=== PATIENT | female | born 1985 | race Caucasian/White ===

== ENCOUNTER → 2017-04-27 14:23 | Outpatient (CLI) | payer OTHER, SELFPAY ==
[2017-04-27 17:24] LABS: Alanine Aminotransferase 35 U/L (12-78); Albumin Level 4.2 gm/dL (3.4-5.0); Alkaline Phosphatase 142 U/L (46-116); Anion Gap 14.4 mEq/L (5-15); Aspartate Amino Transferase 26 U/L (15-37); Bilirubin,Total 0.2 mg/dL (0.2-1.0); Blood Urea Nitrogen 14 mg/dL (7-18); Calcium 9.5 mg/dL (8.5-10.1); Carbon Dioxide 28 mmol/L (21.0-32.0); Chloride 99 mmol/L (98-107); Creatinine,Serum 0.77 mg/dL (0.55-1.02); Estimated Glomerular Filt Rate 86 ml/min (>60); GFR (African American) 104 ML/MIN (>60); Globulin 4.1 gm/dl (1.3-3.2); Glucose 96 mg/dL (74-106); Potassium 4.4 mmoL/L (3.5-5.1); Sodium 137 mmol/L (136-145); Total Protein,Serum 8.3 gm/dL (6.4-8.2)
== END ==
PROVIDERS: PCP Nurse Practitioner Family
DX: L40.4 Guttate psoriasis (principal)
CPT/HCPCS: 36415; 80053

== ENCOUNTER → 2021-10-11 13:40 | Outpatient (CLI) | payer OTHER, SELFPAY ==
[2021-10-11 13:25] LABS: Basophils # 0.2 K/mm3 (0-0.2); Basophils % 1.9 % (0.1-2.0); Hematocrit 44.8 % (37.0-47.0); Lymphocytes # 2.4 K/mm3 (0.7-4.5); Lymphocytes % 24.8 % (10-50); Mean Corpuscular HGB Conc 31.2 g/dL (31.8-35.4); Mean Corpuscular Hemoglobin 29.4 pg (27.0-31.2); Mean Platelet Volume 8.8 fl (7.4-10.4); Monocytes # 0.6 K/mm3 (0.1-1.0); Monocytes % 6.2 % (1.7-9.3); Neutrophils # 6.5 K/mm3 (1.8-7.8); Neutrophils % 66.9 % (37.0-80.0); Platelet Count 410 K/mm3 (142-424); Red Blood Count 4.76 M/mm3 (4.20-5.40); White Blood Count 9.8 K/mm3 (4.8-10.8)
[2021-10-11 13:35] LABS: Alanine Aminotransferase 26 U/L (12-78); Albumin Level 4.1 g/dl (3.5-5.0); Albumin/Globulin Ratio 1.2 (1.1-1.8); Alkaline Phosphatase 138 U/L (38-126); Anion Gap 11.4 mEq/L (5-15); Aspartate Amino Transferase 45 U/L (14-36); Bilirubin,Total < 0.1 mg/dl (0.2-1.3); Blood Urea Nitrogen 9 mg/dl (7-17); Calcium 9.9 mg/dl (8.4-10.2); Carbon Dioxide 30 mmol/L (22.0-30.0); Chloride 101 mmol/L (98-107); Cholesterol 230 mg/dl (140-200); Estimated Glomerular Filt Rate 112 ml/min (>60); GFR (African American) 135 ML/MIN (>60); Globulin 3.3 g/dL (1.3-3.2); Glucose 132 mg/dl (74-100); HDL Cholesterol 46 mg/dl (40-60); Potassium 4.4 mmoL/L (3.5-5.1); Sodium 138 mmol/L (136-145); Total Protein,Serum 7.4 g/dl (6.3-8.2); Triglycerides 232 mg/dl (30-150); VLDL Cholesterol 46 mg/dL (0-40)
[2021-10-11 13:46] LABS: Direct LDL Cholesterol 135.14 mg/dL (100-129)
[2021-10-11 13:52] LABS: 25-OH Vitamin D, Total 31.1 ng/mL (30-100)
[2021-10-11 14:06] LABS: Thyroid Stimulating Hormone 1.05 uIU/mL (0.465-4.68)
[2021-10-12 10:40] LABS: Hemoglobin A1C 5.5 % (4.0-6.0)
== END ==
PROVIDERS: PCP Physician Assistant; Visit Provider Physician Assistant
DX: Z00.00 Encounter for general adult medical examination without abnormal findings (principal); R73.9 Hyperglycemia, unspecified; E66.01 Morbid (severe) obesity due to excess calories; Z68.41 Body mass index [BMI] 40.0-44.9, adult
CPT/HCPCS: 80053; 80061; 82306; 83036; 84443; 85025

== ENCOUNTER → 2022-04-13 10:20 | Outpatient (CLI) | payer OTHER, SELFPAY | PROVIDERS: PCP Physician Assistant; Visit Provider Physician Assistant | DX: M25.571 Pain in right ankle and joints of right foot (principal) ==

== ENCOUNTER → 2022-04-13 10:20 | Outpatient (CLI) | payer OTHER, SELFPAY ==
[2022-04-13 15:21] LABS: Basophils # 0.1 K/mm3 (0-0.2); Hematocrit 46.7 % (37.0-47.0); Hemoglobin 14.3 g/dL (12.2-16.2); Lymphocytes # 3.2 K/mm3 (0.7-4.5); Lymphocytes % 32.3 % (10-50); Mean Corpuscular HGB Conc 30.5 g/dL (31.8-35.4); Mean Corpuscular Hemoglobin 28.6 pg (27.0-31.2); Mean Corpuscular Volume 93.9 fl (81-99); Mean Platelet Volume 9.2 fl (7.4-10.4); Monocytes # 0.4 K/mm3 (0.1-1.0); Monocytes % 4.5 % (1.7-9.3); Neutrophils # 6.1 K/mm3 (1.8-7.8); Neutrophils % 62.2 % (37.0-80.0); Platelet Count 471 K/mm3 (142-424); Red Blood Count 4.98 M/mm3 (4.20-5.40); Red Cell Distribution Width 13.2 % (11.5-17.5); White Blood Count 9.7 K/mm3 (4.8-10.8)
[2022-04-13 15:38] LABS: Chloride 100 mmol/L (98-107)
[2022-04-13 15:39] LABS: Potassium 4.4 mmoL/L (3.5-5.1); Sodium 138 mmol/L (136-145)
[2022-04-13 15:41] LABS: Blood Urea Nitrogen 11 mg/dl (7-17); Estimated Glomerular Filt Rate 111 ml/min (>60); GFR (African American) 135 ML/MIN (>60)
[2022-04-13 15:42] LABS: Alanine Aminotransferase 28 U/L (12-78); Albumin Level 4.4 g/dl (3.5-5.0); Albumin/Globulin Ratio 1.3 (1.1-1.8); Alkaline Phosphatase 155 U/L (38-126); Anion Gap 12.4 mEq/L (5-15); Aspartate Amino Transferase 36 U/L (14-36); Bilirubin,Total 0.6 mg/dl (0.2-1.3); Calcium 9.5 mg/dl (8.4-10.2); Carbon Dioxide 30 mmol/L (22.0-30.0); Chol/HDL Ratio 3.4 (1-3.5); Cholesterol 195 mg/dl (140-200); Globulin 3.4 g/dL (1.3-3.2); Glucose 106 mg/dl (74-100); HDL Cholesterol 58 mg/dl (40-60); Total Protein,Serum 7.8 g/dl (6.3-8.2); Triglycerides 90 mg/dl (30-150); VLDL Cholesterol 18 mg/dL (0-40)
[2022-04-13 15:52] LABS: 25-OH Vitamin D, Total 23.2 ng/mL (30-100)
[2022-04-13 16:13] LABS: Thyroid Stimulating Hormone 0.95 uIU/mL (0.465-4.68)
[2022-04-15 15:35] LABS: Peripheral Smear Review Scanned Result
== END ==
PROVIDERS: PCP Physician Assistant; Visit Provider Physician Assistant
DX: I10 Essential (primary) hypertension (principal); E78.5 Hyperlipidemia, unspecified; E55.9 Vitamin D deficiency, unspecified
CPT/HCPCS: 80053; 80061; 82306; 84443; 85025

== ENCOUNTER 2022-05-08 12:18 | Emergency (ER) | payer OTHER, SELFPAY ==
[2022-05-08 12:20] VITALS: BP 142/79; PULSE 79; RESP 18; TEMP 36.8; O2SAT 98; BMI 38.0
[2022-05-08 12:45] VITALS: PULSE 96; O2SAT 96
--- NOTE | 2022-05-08 12:45 | HMH.EDGENADL ---
Discharge Plan Disposition Patient Disposition: Home, Self-Care Prescriptions Prescriptions: New ibuprofen 800 mg tablet 800 mg PO TID PRN (Reason: pain) 7 Days Qty: 21 0RF No Action ketoconazole 2 % shampoo TP triamcinolone acetonide 0.1 % ointment 1 applic TP BID Qty: 30 0RF celecoxib 200 mg capsule See Rx Instructions .ROUTE .COMPLEX Qty: 90 1RF Dose Instruction: TAKE 1 CAPSULE BY MOUTH ONCE DAILY Rx Instructions: TAKE 1 CAPSULE BY MOUTH ONCE DAILY diclofenac sodium [Voltaren Arthritis Pain] 1 % gel 2 g TP QID Qty: 100 5RF Rx Instructions: apply to single elbow, wrist or hand; for hand includes palm/fingers/back of hand hydroxyzine pamoate 25 mg capsule See Rx Instructions .ROUTE .COMPLEX Qty: 180 1RF Dose Instruction: TAKE 1 CAPSULE BY MOUTH TWICE DAILY NEEDED FOR INSOMNIA *MAY CAUSE DROWSINESS* NEEDS APPOINTMENT BEFORE ANYMORE REFILLS Rx Instructions: TAKE 1 CAPSULE BY MOUTH TWICE DAILY NEEDED FOR INSOMNIA *MAY CAUSE DROWSINESS* clobetasol 0.05 % solution See Rx Instructions .ROUTE .COMPLEX Qty: 50 2RF Dose Instruction: APPLY TO AFFECTED AREA AT BEDTIME Rx Instructions: APPLY TO AFFECTED AREA AT BEDTIME atorvastatin 10 mg tablet See Rx Instructions .ROUTE .COMPLEX Rx Instructions: TAKE 1 TABLET BY MOUTH AT BEDTIME ergocalciferol (vitamin D2) 1,250 mcg (50,000 unit) capsule 1,250 mcg PO WEEKLY lisinopril-hydrochlorothiazide 10-12.5 mg tablet See Rx Instructions .ROUTE .COMPLEX Rx Instructions: TAKE 1 TABLET BY MOUTH ONCE DAILY bupropion HCl 150 mg tablet extended release 24 hr See Rx Instructions .ROUTE .COMPLEX Rx Instructions: TAKE 1 TABLET BY MOUTH ONCE DAILY cholecalciferol (vitamin D3) 50 mcg (2,000 unit) capsule 50 mcg PO DAILY Referrals Follow up/Referrals: Claire Eid PA [Primary Care Provider] - See instructions Activity Restrictions/Add. Instructions Additional Instructions/Restrictions: Your x-rays did not demonstrate any fractures or dislocations. Your injury is consistent with musculoskeletal strain around the left hip. Take ibuprofen as indicated. You may apply ice 30 minutes at a time several times a day. Continue to ambulate and follow-up with your primary care doctor within a week if you are continuing to have discomfort. Clinical Impressions Clinical Impression: Muscle strain of left hip Discharge ED Provider: Raheem Oconnell General Adult HPI General Chief complaint: PAIN Stated complaint: back pain, no accident Time Seen by Provider: 05/08/22 12:45 Mode of Arrival: Wheelchair Source of Information: Patient Limitations: No Limitations Description of Symptoms (Recalled from ER Triage Doc. by RN): pt comes in with c/o left sided pain that began on sunday when she was cleaning. pt states that it is difficult to sit in certain positions and get comfortable. pain shoots down into left leg at times. History of Present Illness HPI narrative: Patient is a 37-year-old female with no past medical problems who presents today with left hip pain. States that she was working on her stove and refrigerator at home and was cleaning and subsequently started to feel left hip pain. Denies any specific moment when this began and denies any falls or blunt trauma to the area. Patient has been able to bear weight with difficulty and is required a cane. She denies any midline back pain denies any radiating symptoms. 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 She has not had any medication at home prior to her emergency department visit today. Related Data Home Medications Medication Instructions Recorded Confirmed ketoconazole 2 % shampoo topical 10/11/21 04/13/22 atorvastatin 10 mg tablet See Rx Instructions .Route 05/08/22 05/08/22 .COMPLEX . bupropion HCl 150 mg 24 hr tablet, See Rx Instructions .Rout
--- NOTE | 2022-05-08 12:48 | PC.NURSE ---
PENG BOATENG at for pt svenal
--- NOTE | 2022-05-08 12:50 | XR_ITS ---
FINAL REPORT CLINICAL HISTORY: pain, strain FINDINGS: LEFT HIP An AP view of the pelvis with internal and external views of the left hip are obtained. There is no acute fracture or dislocation. Visualized joint spaces are normally aligned. There is no acute soft tissue abnormality. IMPRESSION: No acute bony abnormality. Reviewed, Interpreted and Dictated by Adrián Pacheco MD Transcribed by Ginna Paulino Authenticated and [facility]
[2022-05-08 13:05] LABS: Urine Pregnancy, HCG Qual. Negative (Negative)
[2022-05-08 13:11] VITALS: BP 130/83; PULSE 80; O2SAT 97
--- NOTE | 2022-05-08 13:21 | PC.NURSE ---
pt to rad via wheelchair
--- NOTE | 2022-05-08 13:32 | PC.NURSE ---
pt back from rad
[2022-05-08 14:01] VITALS: BP 126/73; PULSE 74; O2SAT 97
[2022-05-08 14:28] VITALS: BP 126/73; PULSE 83; RESP 18; TEMP 36.6
== END 2022-05-08 14:29 | disposition home or self-care (01) ==
PROVIDERS: Emergency Provider Student in an Organized Health Care Education/Training Program; PCP Physician Assistant
DX: S76.012A Strain of muscle, fascia and tendon of left hip, initial encounter (principal); X58.XXXA Exposure to other specified factors, initial encounter; F41.9 Anxiety disorder, unspecified; E78.5 Hyperlipidemia, unspecified; I10 Essential (primary) hypertension; M19.90 Unspecified osteoarthritis, unspecified site
CPT/HCPCS: 73502; 81025; 99283; 99284

== ENCOUNTER 2023-06-20 11:45 | Outpatient (CLI) | payer OTHER, SELFPAY ==
[2023-06-20 12:02] LABS: Basophils # 0.1 K/mm3 (0-0.2); Basophils % 0.9 % (0.1-2.0); Hematocrit 43.6 % (37.0-47.0); Lymphocytes # 2.7 K/mm3 (0.7-4.5); Lymphocytes % 31.4 % (10-50); Mean Corpuscular HGB Conc 32.2 g/dL (31.8-35.4); Mean Corpuscular Hemoglobin 30.6 pg (27.0-31.2); Mean Corpuscular Volume 95.1 fl (81-99); Mean Platelet Volume 8.1 fl (7.4-10.4); Monocytes # 0.4 K/mm3 (0.1-1.0); Monocytes % 4.8 % (1.7-9.3); Neutrophils # 5.3 K/mm3 (1.8-7.8); Neutrophils % 62.8 % (37.0-80.0); Platelet Count 426 K/mm3 (142-424); Red Blood Count 4.59 M/mm3 (4.20-5.40); White Blood Count 8.5 K/mm3 (4.8-10.8)
[2023-06-20 12:27] LABS: Alanine Aminotransferase 37 U/L (12-78); Albumin Level 4.8 g/dl (3.5-5.0); Albumin/Globulin Ratio 1.6 (1.1-1.8); Alkaline Phosphatase 120 U/L (38-126); Anion Gap 11.8 mEq/L (5-15); Aspartate Amino Transferase 45 U/L (14-36); Bilirubin,Total 0.3 mg/dl (0.2-1.3); Blood Urea Nitrogen 14 mg/dl (7-17); Calcium 10.1 mg/dl (8.4-10.2); Carbon Dioxide 30 mmol/L (22.0-30.0); Chloride 100 mmol/L (98-107); Chol/HDL Ratio 3.2 (1-3.5); Cholesterol 217 mg/dl (140-200); Estimated Glomerular Filt Rate 93 ml/min (>60); GFR (African American) 112 ML/MIN (>60); Glucose 84 mg/dl (74-100); HDL Cholesterol 67 mg/dl (40-60); Potassium 4.8 mmoL/L (3.5-5.1); Sodium 137 mmol/L (136-145); Total Protein,Serum 7.8 g/dl (6.3-8.2); Triglycerides 112 mg/dl (30-150); VLDL Cholesterol 22 mg/dL (0-40)
[2023-06-20 12:38] LABS: Direct LDL Cholesterol 88.25 mg/dL (100-129)
== END 2023-06-20 23:59 ==
LOC: LAB.DROPOF 11:45
PROVIDERS: PCP Physician Assistant; Visit Provider Physician Assistant
DX: E78.5 Hyperlipidemia, unspecified (principal); I10 Essential (primary) hypertension; Z79.899 Other long term (current) drug therapy
CPT/HCPCS: 80053; 80061; 82306; 84443; 85025